=== PATIENT | male | born 1995 | race Asian ===

== ENCOUNTER 2017-08-08 09:25 | Emergency (ER) | payer BC ==
[~2017-08-08] VITALS: Ht 195.6 cm; Wt 145.2 kg
[2017-08-08 09:34] VITALS: TEMP 97.7
[2017-08-08 11:25] LABS: PLATELET COUNT 281 K/uL (142-355)
[2017-08-08 11:34] LABS: POTASSIUM 4.1 mmol/L (3.6-5.2); SODIUM 137 mmol/L (136-145)
[2017-08-08 11:55] VITALS: BP 132/74
== END 2017-08-08 11:55 | disposition home or self-care (01) ==
LOC: ED 09:25
PROVIDERS: Emergency Medicine
DX: R51 Headache (principal); J02.9 Acute pharyngitis, unspecified
CPT/HCPCS: 36415; 80053; 80307; 81000; 85027; 87804; 87880; 99283

== ENCOUNTER 2017-11-19 15:14 | Outpatient (CLI) | payer BC | END 2017-11-19 20:09 | disposition home or self-care (01) | LOC: RAD 15:14 | DX: M25.542 Pain in joints of left hand (principal) ==